=== PATIENT | male | born 1970 | race African-American/Black ===

== ENCOUNTER 2018-03-02 20:07 | Observation (INO) ==
[2018-03-02] MEDS ORDERED: LABETALOL 20 MG/4 ML SYRINGE IV STA ×2 (20:33→21:26)
[2018-03-02] MEDS ORDERED: hydrALAZINE 20 MG/1 ML VIAL IV STA ×2 (20:34→20:55)
[2018-03-02 21:04] LABS: Basophils % 0.5 % (0.0-0.8); Eosinophils # 0.1 10*3/uL (0.0-0.87); Eosinophils % 0.6 % (0.00-10.9); Hematocrit 40.9 VOL% (42.0-52.0); Hemoglobin 12.3 GM/DL (14.0-18.0); Immature Granulocytes % 0.3 %; Immature Granulocytes Absolute 0.02 #; Lymphocytes # 1.9 10*3/uL (1.4-4.0); Lymphocytes % 24.3 % (21.2-54.2); Mean Corpuscular HGB Conc 30.1 GM/DL (32-36); Mean Corpuscular Hemoglobin 25 PG (27-34); Mean Corpuscular Volume 81.3 FL (87-102); Mean Platelet Volume 8.8 FL (9.6-12.0); Monocytes # 0.8 10*3/uL (0.11-0.8); Monocytes % 9.4 % (1.7-12.7); Neutrophils # 5.2 10*3/uL (1.4-7.4); Neutrophils % 64.9 % (38.7-73.9); Platelet Count 437 T/CUMM (130-400); Red Blood Count 5.03 MC/CUMM (3.8-5.5); Red Cell Distribution Width 14.6 % (9.3-17.3)
[2018-03-02 21:26] LABS: Albumin 3.3 G/DL (3.4-5.0); Bilirubin,Total 0.5 MG/DL (0.2-1.0); Calcium 9.1 MG/DL (8.5-10.1); Osmolality,Calculated 280.3 MOS/KG (273-304); Total Protein 7.2 G/DL (6.4-8.3)
[2018-03-02] MEDS ORDERED: FUROSEMIDE 40 MG/4 ML VIAL IV STA (21:45)
[2018-03-02 22:02] LABS: Apearance,Urine CLEAR (Clear); Bilirubin,Urine Negative (Negative); Blood, Urine Negative (Negative); Glucose,Urine (UA) Negative (Negative); Hyaline Casts,Urine 3 /LPF (0-3); Ketones,Urine Negative (Negative); Mucus,Urine Occasional /LPF (Occasional); Nitrite,Urine Negative (Negative); Protein,Urine 100 MG/DL; Squamous Epithelial Cell,Urine Occasional /HPF (0-10); Urine Color Yellow (Yellow); Urine Specific Gravity 1.008 (1.001-1.035); Urine Urobilinogen < 2.0 EU/DL (0.2-1.0)
[2018-03-02] MEDS ORDERED: LISINOPRIL 10 MG TABLET PO STA (22:35)
[2018-03-02] MEDS ORDERED: CARVEDILOL 3.125 MG TABLET PO STA (22:36)
[2018-03-03] MEDS ORDERED: FUROSEMIDE 20 MG/2 ML VIAL IV ONE (06:49)
[2018-03-03] MEDS ORDERED: DEXTROMETHORPHAN ER 6 MG/ML 90 ML/BOTTLE PO PRN (06:49)
[2018-03-03] MEDS ORDERED: BENZONATATE 100 MG CAPSULE PO PRN (06:51)
[2018-03-03] MEDS: CARVEDILOL 6.25 MG TABLET PO SCH ×2 (08:20→16:17)
[2018-03-03] MEDS: COLCHICINE 0.6 MG TABLET PO SCH (08:20)
[2018-03-03] MEDS: LOSARTAN 50 MG TABLET PO SCH (08:21)
[2018-03-03] MEDS: FUROSEMIDE 20 MG/2 ML VIAL IV SCH ×2 (08:21→16:17)
[2018-03-03] MEDS: methylPREDNISolone SOD SUC 125 MG/2 ML VIAL IV SCH ×2 (08:22→18:08)
[2018-03-03] MEDS ORDERED: LISINOPRIL 20 MG TABLET PO SCH (09:00)
[2018-03-03] MEDS ORDERED: FUROSEMIDE 40 MG/4 ML VIAL IV SCH (16:40)
[2018-03-03] MEDS: ASPIRIN EC 81 MG TABLET PO SCH (17:16)
[2018-03-03] MEDS: ISOSORBIDE MONONITRATE 30 MG TABLET PO SCH (17:16)
[2018-03-03 19:20] LABS: Barbiturates Screen,Urine Negative (Negative); Benzodiazepines Screen,Urine Negative (Negative); Cannabinoid Screen,Urine Negative (Negative); Opiate Screen,Urine Negative (Negative); Phencyclidine Screen,Urine Negative (Negative)
[2018-03-04 05:16] LABS: Risk Ratio 5.23; Thyroid Stimulating Hormone 0.373 uIU/ml (0.358-3.74); VLDL CHOLESTEROL 9.8 MG/DL
[2018-03-04 08:40] LABS: Basophils % 0.1 % (0.0-0.8); Hematocrit 40.7 VOL% (42.0-52.0); Hemoglobin 12.3 GM/DL (14.0-18.0); Immature Granulocytes % 0.7 %; Immature Granulocytes Absolute 0.13 #; Lymphocytes # 1.3 10*3/uL (1.4-4.0); Lymphocytes % 6.8 % (21.2-54.2); Mean Corpuscular HGB Conc 30.2 GM/DL (32-36); Mean Corpuscular Hemoglobin 24 PG (27-34); Mean Corpuscular Volume 80.3 FL (87-102); Mean Platelet Volume 9.2 FL (9.6-12.0); Monocytes # 0.4 10*3/uL (0.11-0.8); Monocytes % 2.2 % (1.7-12.7); Neutrophils # 16.5 10*3/uL (1.4-7.4); Neutrophils % 90.2 % (38.7-73.9); Platelet Count 437 T/CUMM (130-400); Red Blood Count 5.07 MC/CUMM (3.8-5.5); Red Cell Distribution Width 14.6 % (9.3-17.3); White Blood Count 18.3 T/CUMM (4-12)
[2018-03-04 08:52] LABS: Calcium 8.9 MG/DL (8.5-10.1); Osmolality,Calculated 281.4 MOS/KG (273-304); Potassium 4.3 MMOL/L (3.5-5.1)
[2018-03-04] MEDS: LOSARTAN 50 MG TABLET PO SCH (08:52)
[2018-03-04] MEDS: COLCHICINE 0.6 MG TABLET PO SCH (08:52)
[2018-03-04] MEDS: CARVEDILOL 6.25 MG TABLET PO SCH (08:52)
[2018-03-04] MEDS: methylPREDNISolone SOD SUC 125 MG/2 ML VIAL IV SCH (08:53)
[2018-03-04] MEDS: ISOSORBIDE MONONITRATE 30 MG TABLET PO SCH (08:53)
[2018-03-04] MEDS: ASPIRIN EC 81 MG TABLET PO SCH (08:53)
[2018-03-04 11:43] VITALS: BP 131/62
[2018-03-04] MEDS ORDERED: FUROSEMIDE 40 MG TABLET PO SCH (16:00)
[2018-03-05] MEDS ORDERED: predniSONE 20 MG TABLET PO SCH (09:00)
== END 2018-03-04 14:21 | disposition home or self-care (01) ==
LOC: N.ED 20:07 → N.EDINP 20:07 → N.TELES 23:38
PROVIDERS: ADMIT Family Medicine; ATTEND Family Medicine

== ENCOUNTER 2019-04-08 14:05 | Inpatient (IN) ==
[2019-04-08] MEDS ORDERED: FUROSEMIDE 100 MG/10 ML VIAL IV STA (14:43)
[2019-04-08 14:49] LABS: Basophils % 0.3 % (0.0-0.8); Eosinophils # 0.1 10*3/uL (0.0-0.87); Eosinophils % 1.2 % (0.00-10.9); Hematocrit 42.3 VOL% (42.0-52.0); Hemoglobin 13.2 GM/DL (14.0-18.0); Immature Granulocytes % 0.4 %; Immature Granulocytes Absolute 0.04 #; Lymphocytes % 19.1 % (21.2-54.2); Mean Corpuscular HGB Conc 31.2 GM/DL (32-36); Mean Corpuscular Volume 83.8 FL (87-102); Mean Platelet Volume 9.4 FL (9.6-12.0); Monocytes % 6.4 % (1.7-12.7); Neutrophils % 72.6 % (38.7-73.9); Platelet Count 318 T/CUMM (130-400); Red Blood Count 5.05 MC/CUMM (3.8-5.5); White Blood Count 10.3 T/CUMM (4-12)
[2019-04-08] MEDS ORDERED: NITROGLYCERIN 2% OINT 1 INCH/GM PACK TOP STA (15:00)
[2019-04-08] MEDS ORDERED: LABETALOL 20 MG/4 ML SYRINGE IV STA (15:01)
[2019-04-08] MEDS ORDERED: NITROGLYCERIN 2% OINT 1 INCH/GM PACK TOP ONE (15:03)
[2019-04-08] MEDS ORDERED: LABETALOL 20 MG/4 ML SYRINGE IV ONE (15:03)
[2019-04-08 15:07] LABS: Albumin 3.5 G/DL (3.4-5.0); Bilirubin,Total 0.4 MG/DL (0.2-1.0); Calcium 8.6 MG/DL (8.5-10.1); Osmolality,Calculated 273.7 MOS/KG (273-304); Total Protein 7.4 G/DL (6.4-8.3)
[2019-04-08] MEDS ORDERED: LABETALOL 100 MG/20 ML VIAL IV STA (16:15)
[2019-04-08] MEDS ORDERED: ONDANSETRON 4 MG/2 ML VIAL IV PRN (16:16)
[2019-04-08] MEDS: MORPHINE 4 MG/1 ML VIAL IV PRN (18:35)
[2019-04-08] MEDS ORDERED: MORPHINE 4 MG/1 ML VIAL IV ONE (19:06)
[2019-04-08] MEDS: ENOXAPARIN 40 MG/0.4 ML SYRINGE SUBCUT SCH (23:51)
[2019-04-08] MEDS: ASPIRIN EC 81 MG TABLET PO SCH (23:52)
[2019-04-08] MEDS: DOCUSATE SODIUM 100 MG CAPSULE PO SCH (23:52)
[2019-04-08] MEDS: SPIRONOLACTONE 25 MG TABLET PO SCH (23:52)
[2019-04-09 06:59] LABS: Risk Ratio 4.44
[2019-04-09] MEDS: SPIRONOLACTONE 25 MG TABLET PO SCH ×3 (08:53→21:37)
[2019-04-09] MEDS: FUROSEMIDE 40 MG/4 ML VIAL IV SCH ×2 (08:53→16:30)
[2019-04-09] MEDS: PANTOPRAZOLE 40 MG TABLET PO SCH (08:53)
[2019-04-09] MEDS: DOCUSATE SODIUM 100 MG CAPSULE PO SCH ×2 (08:57→21:37)
[2019-04-09] MEDS: cefTRIAXone 1,000 MG in SYRINGE 1 EACH IV SCH (08:59)
[2019-04-09] MEDS: AZITHROMYCIN 250 MG TABLET PO SCH (09:02)
[2019-04-09 09:55] LABS: Apearance,Urine CLEAR (Clear); Bilirubin,Urine Negative (Negative); Blood, Urine Negative (Negative); Glucose,Urine (UA) Negative (Negative); Ketones,Urine Negative (Negative); Nitrite,Urine Negative (Negative); Protein,Urine Negative; RBC,Urine 1 /HPF (0-4); Urine Color Straw (Yellow); Urine Specific Gravity 1.005 (1.001-1.035); Urine Urobilinogen < 2.0 EU/DL (0.2-1.0); WBC,Urine <1 /HPF (0-6)
[2019-04-09] MEDS: ACETAMINOPHEN 325 MG TABLET PO PRN (12:26)
[2019-04-09] MEDS: ENOXAPARIN 40 MG/0.4 ML SYRINGE SUBCUT SCH (21:37)
[2019-04-09] MEDS: ASPIRIN EC 81 MG TABLET PO SCH (21:37)
[2019-04-10] MEDS: ACETAMINOPHEN 325 MG TABLET PO PRN ×4 (00:43→23:38)
[2019-04-10 07:54] LABS: Basophils % 0.1 % (0.0-0.8); Hemoglobin 12.1 GM/DL (14.0-18.0); Immature Granulocytes % 0.3 %; Immature Granulocytes Absolute 0.02 #; Lymphocytes # 1.1 10*3/uL (1.4-4.0); Lymphocytes % 15.5 % (21.2-54.2); Mean Corpuscular HGB Conc 30.3 GM/DL (32-36); Mean Corpuscular Volume 85.8 FL (87-102); Mean Platelet Volume 9.3 FL (9.6-12.0); Monocytes % 10.3 % (1.7-12.7); Neutrophils % 73.8 % (38.7-73.9); Platelet Count 220 T/CUMM (130-400); Red Blood Count 4.66 MC/CUMM (3.8-5.5); Red Cell Distribution Width 14.4 % (9.3-17.3); White Blood Count 7.2 T/CUMM (4-12)
[2019-04-10] MEDS: FUROSEMIDE 40 MG/4 ML VIAL IV SCH ×2 (08:49→17:22)
[2019-04-10] MEDS: AZITHROMYCIN 250 MG TABLET PO SCH (08:55)
[2019-04-10] MEDS: SPIRONOLACTONE 25 MG TABLET PO SCH ×3 (08:55→21:53)
[2019-04-10] MEDS: cefTRIAXone 1,000 MG in SYRINGE 1 EACH IV SCH (08:55)
[2019-04-10] MEDS: PANTOPRAZOLE 40 MG TABLET PO SCH (08:55)
[2019-04-10] MEDS: DOCUSATE SODIUM 100 MG CAPSULE PO SCH ×2 (08:55→21:53)
[2019-04-10] MEDS ORDERED: ALBUTEROL/IPRATROPIUM 3 ML NEB RESP TX PRN (20:06)
[2019-04-10] MEDS: ALBUTEROL/IPRATROPIUM 3 ML NEB RESP TX SCH (20:10)
[2019-04-10] MEDS: ASPIRIN EC 81 MG TABLET PO SCH (21:52)
[2019-04-10] MEDS: ENOXAPARIN 40 MG/0.4 ML SYRINGE SUBCUT SCH (21:53)
[2019-04-11] MEDS: ALBUTEROL/IPRATROPIUM 3 ML NEB RESP TX SCH ×4 (01:15→20:08)
[2019-04-11] MEDS: ACETAMINOPHEN 325 MG TABLET PO PRN (05:16)
[2019-04-11] MEDS: PANTOPRAZOLE 40 MG TABLET PO SCH (09:15)
[2019-04-11] MEDS: AZITHROMYCIN 250 MG TABLET PO SCH (09:15)
[2019-04-11] MEDS: DOCUSATE SODIUM 100 MG CAPSULE PO SCH ×2 (09:15→21:35)
[2019-04-11] MEDS: SPIRONOLACTONE 25 MG TABLET PO SCH ×3 (09:16→21:35)
[2019-04-11] MEDS: cefTRIAXone 1,000 MG in SYRINGE 1 EACH IV SCH (09:16)
[2019-04-11] MEDS: FUROSEMIDE 40 MG TABLET PO SCH (09:16)
[2019-04-11] MEDS: ASPIRIN EC 81 MG TABLET PO SCH (21:35)
[2019-04-11] MEDS: ENOXAPARIN 40 MG/0.4 ML SYRINGE SUBCUT SCH (21:35)
[2019-04-12] MEDS: ALBUTEROL/IPRATROPIUM 3 ML NEB RESP TX SCH ×3 (02:21→14:06)
[2019-04-12] MEDS: cefTRIAXone 1,000 MG in SYRINGE 1 EACH IV SCH (08:43)
[2019-04-12] MEDS: PANTOPRAZOLE 40 MG TABLET PO SCH (08:44)
[2019-04-12] MEDS: AZITHROMYCIN 250 MG TABLET PO SCH (08:44)
[2019-04-12] MEDS: SPIRONOLACTONE 25 MG TABLET PO SCH ×3 (08:44→20:55)
[2019-04-12] MEDS: FUROSEMIDE 40 MG TABLET PO SCH (08:45)
[2019-04-12] MEDS: DOCUSATE SODIUM 100 MG CAPSULE PO SCH ×2 (08:46→20:55)
[2019-04-12] MEDS: ALBUTEROL 2.5 MG/3 ML NEB RESP TX SCH ×3 (14:13→23:12)
[2019-04-12] MEDS: ACETAMINOPHEN 325 MG TABLET PO PRN (14:37)
[2019-04-12] MEDS: VANCOMYCIN INJ 2,000 MG in SODIUM CHLORIDE 0.9% 500 ML IV SCH (16:01)
[2019-04-12] MEDS ORDERED: FUROSEMIDE 40 MG/4 ML VIAL IV ONE (16:14)
[2019-04-12] MEDS ORDERED: DEXTROMETHORPHAN ER 6 MG/ML 90 ML/BOTTLE PO PRN (16:15)
[2019-04-12] MEDS: MEROPENEM 500 MG in SODIUM CHLORIDE 0.9% 100 ML IV SCH ×2 (17:52→22:44)
[2019-04-12] MEDS: ASPIRIN EC 81 MG TABLET PO SCH (20:55)
[2019-04-12] MEDS: ENOXAPARIN 40 MG/0.4 ML SYRINGE SUBCUT SCH (20:56)
[2019-04-12 23:39] LABS: ABG Base Excess 9.9 MMOL/L (-2.5-2.5); ABG Oxygen Saturation 68.1 % (95-100); ABG PCO2 51.8 MM HG (35-48); ABG PH 7.448 (7.35-7.45); ABG TCO2 31.8 MMOL/L (23-27)
[2019-04-12 23:41] LABS: ABG PO2 34.7 MM HG (80-95)
[2019-04-13] MEDS: ACETAMINOPHEN 325 MG TABLET PO PRN (00:10)
[2019-04-13] MEDS ORDERED: FUROSEMIDE 40 MG/4 ML VIAL IV ONE ×2 (00:16→05:54)
[2019-04-13 00:44] LABS: ABG Base Excess 9.4 MMOL/L (-2.5-2.5); ABG HCO3 32.9 MMOL/L (20-26); ABG Oxygen Saturation 86.1 % (95-100); ABG PCO2 55.8 MM HG (35-48); ABG PH 7.417 (7.35-7.45); Allen Test Positive; Pt O2 Delivery Device Other
[2019-04-13 00:49] VITALS: BP 118/86
[2019-04-13 00:53] LABS: Basophils % 0.1 % (0.0-0.8); Hematocrit 38.4 VOL% (42.0-52.0); Hemoglobin 11.5 GM/DL (14.0-18.0); Immature Granulocytes % 0.5 %; Immature Granulocytes Absolute 0.04 #; Lymphocytes # 1.1 10*3/uL (1.4-4.0); Lymphocytes % 13.5 % (21.2-54.2); Mean Corpuscular HGB Conc 29.9 GM/DL (32-36); Mean Platelet Volume 8.9 FL (9.6-12.0); Monocytes % 5.3 % (1.7-12.7); Neutrophils % 80.6 % (38.7-73.9); Platelet Count 191 T/CUMM (130-400); Red Blood Count 4.52 MC/CUMM (3.8-5.5); Red Cell Distribution Width 13.8 % (9.3-17.3); White Blood Count 8.4 T/CUMM (4-12)
[2019-04-13 00:58] LABS: Apearance,Urine CLOUDY (Clear); Bacteria,Urine Few /HPF (Few); Bilirubin,Urine Negative (Negative); Blood, Urine Moderate mg/dL (Negative); Glucose,Urine (UA) Negative (Negative); Ketones,Urine 5 mg/dL (Negative); Mucus,Urine Occasional /LPF (Occasional); Nitrite,Urine Negative (Negative); Protein,Urine 100 MG/DL; Urine Color Yellow (Yellow); Urine Specific Gravity 1.017 (1.001-1.035); Urine Urobilinogen < 2.0 EU/DL (0.2-1.0)
[2019-04-13 01:03] LABS: RBC,Urine 10 /HPF (0-4)
[2019-04-13 01:18] LABS: Albumin 2.8 G/DL (3.4-5.0); Bilirubin,Total 0.4 MG/DL (0.2-1.0); Osmolality,Calculated 266.5 MOS/KG (273-304); Total Protein 7.3 G/DL (6.4-8.3)
[2019-04-13] MEDS: VANCOMYCIN INJ 2,000 MG in SODIUM CHLORIDE 0.9% 500 ML IV SCH ×2 (02:21→14:56)
[2019-04-13] MEDS: ALBUTEROL 2.5 MG/3 ML NEB RESP TX SCH ×5 (03:14→19:25)
[2019-04-13 05:38] LABS: ABG HCO3 33.5 MMOL/L (20-26); ABG Oxygen Saturation 82.9 % (95-100); ABG PCO2 58.2 MM HG (35-48); ABG PH 7.411 (7.35-7.45); ABG TCO2 32.9 MMOL/L (23-27); Allen Test Positive; Pt O2 Delivery Device Other
[2019-04-13] MEDS: MORPHINE 4 MG/1 ML VIAL IV PRN (05:45)
[2019-04-13] MEDS ORDERED: ETOMIDATE 20 MG/10 ML VIAL IV ONE ×3 (06:00→06:41)
[2019-04-13] MEDS ORDERED: SUCCINYLCHOLINE 200 MG/10 ML VIAL ONE (06:01)
[2019-04-13] MEDS: MEROPENEM 500 MG in SODIUM CHLORIDE 0.9% 100 ML IV SCH ×3 (06:04→17:19)
[2019-04-13] MEDS ORDERED: ROCURONIUM 100 MG/10 ML VIAL IV ONE (06:39)
[2019-04-13] MEDS ORDERED: SUCCINYLCHOLINE 200 MG/10 ML VIAL IV ONE (06:41)
[2019-04-13] MEDS ORDERED: methylPREDNISolone SOD SUC INJ 1,000 MG in SODIUM CHLORIDE 0.9% 100 ML IV ONE ×2 (07:05→07:30)
[2019-04-13] MEDS ORDERED: PHENYLEPHRINE DRIP 40 MG/250 ML PREMIX IV PRN (07:16)
[2019-04-13] MEDS ORDERED: PHENYLEPHRINE DRIP 40 MG/250 ML PREMIX IV ONE (07:16)
[2019-04-13 07:29] LABS: ABG Base Excess 8.7 MMOL/L (-2.5-2.5); ABG HCO3 32.2 MMOL/L (20-26); ABG PCO2 49.5 MM HG (35-48); ABG PH 7.448 (7.35-7.45); ABG PO2 47.9 MM HG (80-95); ABG TCO2 30.5 MMOL/L (23-27); Allen Test Positive; Pt O2 Delivery Device Ventilator
[2019-04-13 08:15] LABS: Rheumatoid Factor < 15 IU/ML (<15)
[2019-04-13] MEDS: fentaNYL INJ 1,250 MCG in SODIUM CHLORIDE 0.9% 225 ML IV PRN ×4 (08:38→18:45)
[2019-04-13] MEDS ORDERED: OSELTAMIVIR 6 MG/ML 60 ML/BOTTLE PO SCH (09:00)
[2019-04-13 09:21] LABS: Partial Thromboplastin Time 32.2 SECS (20.8-36.0)
[2019-04-13] MEDS ORDERED: LACTATED RINGERS 1,000 ML IV ONE (09:36)
[2019-04-13] MEDS: FUROSEMIDE 40 MG TABLET PO SCH (10:05)
[2019-04-13] MEDS: SPIRONOLACTONE 25 MG TABLET PO SCH (10:05)
[2019-04-13 10:27] LABS: ABG Base Excess 7.5 MMOL/L (-2.5-2.5); ABG HCO3 33.2 MMOL/L (20-26); ABG Oxygen Saturation 85.6 % (95-100); ABG PCO2 51.7 MM HG (35-48); ABG PH 7.426 (7.35-7.45); ABG PO2 50.7 MM HG (80-95); ABG TCO2 34.8 MMOL/L (23-27); Allen Test Positive; Pt O2 Delivery Device Ventilator
[2019-04-13 10:41] LABS: Barbiturates Screen,Urine Negative (Negative); Benzodiazepines Screen,Urine Negative (Negative); Cannabinoid Screen,Urine Negative (Negative); Opiate Screen,Urine Positive (Negative); Phencyclidine Screen,Urine Negative (Negative)
[2019-04-13] MEDS ORDERED: LACTATED RINGERS 1,000 ML IV SCH (10:45)
[2019-04-13] MEDS: DOCUSATE SODIUM 100 MG CAPSULE PO SCH (10:58)
[2019-04-13] MEDS: PANTOPRAZOLE 40 MG TABLET PO SCH (10:58)
[2019-04-13] MEDS ORDERED: CISATRACURIUM 10 MG/5 ML VIAL IV PRN (11:06)
[2019-04-13] MEDS ORDERED: MAGNESIUM SULF RIDER 4 GM in PREMIX 1 EACH IV PRN (11:07)
[2019-04-13] MEDS ORDERED: MAGNESIUM SULF RIDER 2 GM in PREMIX 1 EACH IV PRN (11:07)
[2019-04-13] MEDS: CISATRACURIUM 200 MG in SODIUM CHLORIDE 0.9% 180 ML IV SCH ×2 (12:31→17:40)
[2019-04-13] MEDS ORDERED: NOREPINEPHRINE 8 MG in SODIUM CHLORIDE 0.9% 242 ML IV PRN (12:39)
[2019-04-13] MEDS ORDERED: NOREPINEPHRINE 4 MG/4 ML VIAL IV ONE (12:40)
[2019-04-13] MEDS ORDERED: SODIUM CHLORIDE 0.9% 1,000 ML IV SCH (12:53)
[2019-04-13] MEDS ORDERED: ALBUMIN 25% 50 GM in PREMIX 1 EACH IV ONE (13:00)
[2019-04-13] MEDS ORDERED: methylPREDNISolone SOD SUC 125 MG/2 ML VIAL IM SCH (13:30)
[2019-04-13 14:18] LABS: HIV Antigen/Antibody Result Nonreactive (Nonreactive)
[2019-04-13 14:57] LABS: ABG Base Excess 1.1 MMOL/L (-2.5-2.5); ABG HCO3 25.1 MMOL/L (20-26); ABG Oxygen Saturation 80.3 % (95-100); ABG PCO2 55.9 MM HG (35-48); ABG PH 7.315 (7.35-7.45); ABG PO2 50.4 MM HG (80-95); ABG TCO2 25.8 MMOL/L (23-27); Allen Test Positive; Pt O2 Delivery Device Ventilator
[2019-04-13 16:49] LABS: Troponin I 0.103 NG/ML (0.00-0.045)
[2019-04-13] MEDS ORDERED: fentaNYL INJ 2,500 MCG in SODIUM CHLORIDE 0.9% 450 ML IV PRN (18:14)
[2019-04-13 18:15] LABS: ABG Base Excess 0.8 MMOL/L (-2.5-2.5); ABG HCO3 24.9 MMOL/L (20-26); ABG Oxygen Saturation 88.1 % (95-100); ABG PCO2 58.5 MM HG (35-48); ABG PH 7.296 (7.35-7.45); ABG PO2 61.6 MM HG (80-95); Allen Test Positive; Pt O2 Delivery Device Ventilator
[2019-04-13] MEDS ORDERED: INSULIN LISPRO 100 UNIT/ML SUBCUT SCH (18:30)
[2019-04-13] MEDS ORDERED: CISATRACURIUM IV SCH (19:00)
[2019-04-13] MEDS ORDERED: SODIUM CHLORIDE 0.9% IV SCH (19:00)
[2019-04-15 14:01] LABS: DRVVT Screen Ratio 1.21 ratio (<1.20); INR 1.3 (0.9-1.1)
[2019-04-15 14:36] LABS: Myeloperoxidase Antibody < 0.2 U
== END 2019-04-13 20:08 | disposition hospice, home (50) | DRG 208 ==
LOC: N.ED 14:05 → N.EDINP 16:43 → N.5E 17:25 → N.ICU 04-13 00:04
PROVIDERS: ADMIT Family Medicine; ATTEND Family Medicine